=== PATIENT | female | born 1990 | race African-American/Black ===

== ENCOUNTER 2024-03-26 03:35 | Emergency (ER) | payer MEDICAID, OTHER ==
[~2024-03-26] VITALS: Ht 170.2 cm; Wt 74.8 kg
[2024-03-26 04:02] VITALS: BP 134/68; TEMP 98.1; O2SAT 98
[2024-03-26] MEDS ORDERED: ACETAMINOPHEN 325 MG TABLET ONE (04:29)
[2024-03-26] MEDS: ACETAMINOPHEN 325 MG TABLET PO ONE (04:40)
== END 2024-03-26 06:00 | disposition home or self-care (01) ==
LOC: ER 03:37
DX: R51.9 Headache, unspecified (principal)